=== PATIENT | female | born 1990 | race Caucasian/White ===

== ENCOUNTER 2018-03-10 06:30 | Outpatient (CLI) | payer BC ==
--- NOTE | 2018-03-10 08:24 | ULT ---
TRANSABDOMINAL PELVIC ULTRASOUND WITH DOPPLER: DATE: 03/10/2018. PROVIDED CLINICAL HISTORY: Irregular menses. FINDINGS: The uterus measures about 9.8 x 4.9 x 2.9 cm and demonstrates a normal transabdominal sonographic meir earance. The endometrial thickness is about 6 mm. The right ovary measures about 3.9 x 3.0 x 2.5 cm and appears sonographically unremarkable. The left ovary measures about 3.1 x 4.0 x 2.7 cm and appears sonographically unremarkable. Color Doppler and spectral analysis of the aberrant waveforms demonstrates flow bilaterally. There i s no evidence for free pelvic fluid. IMPRESSION: Unremarkable transabdominal pelvic ultrasound. POS: OFF
== END 2018-03-10 06:31 | disposition home or self-care (01) ==
LOC: BICULT 06:30
PROVIDERS: ATTEND Family Medicine
DX: N92.6 Irregular menstruation, unspecified (principal)
CPT/HCPCS: 76856; 93976

== ENCOUNTER 2019-08-28 00:18 | Inpatient (IN) | payer OTHER ==
[2019-08-28] MEDS ORDERED: hydrALAZINE 20 MG/ML VIAL SLOW IVP PRN ×2 (00:39→23:25)
[2019-08-28] MEDS ORDERED: Ibuprofen 800 MG TAB PO PRN (00:45)
[2019-08-28] MEDS ORDERED: Ondansetron PF 4 MG/2 ML Vial IVP PRN ×4 (00:45→23:25)
[2019-08-28] MEDS ORDERED: NS / Oxytocin 40 units/1000ml 1,000 ML IV PRN (00:45)
[2019-08-28] MEDS ORDERED: Butorphanol Tartrate 1 MG/ML VIAL SLOW IVP PRN (00:45)
[2019-08-28] MEDS ORDERED: Acetaminophen 500 MG TAB PO PRN (00:45)
[2019-08-28] MEDS ORDERED: Lidocaine 1% (PF) 30 ML VIAL SC PRN (00:45)
[2019-08-28] MEDS ORDERED: Promethazine HCl 25 MG/ML VIAL IM PRN ×3 (00:45→20:33)
[2019-08-28] MEDS ORDERED: NS w/ Oxytocin 10 units 500 ML IV SCH (00:45)
[2019-08-28] MEDS: Lactated Ringer's 1,000 ML IV SCH ×3 (00:55→08:26)
--- NOTE | 2019-08-28 00:58 | PDOC.FPROB ---
FMR OB H&P: HPI - History of Present Illness Chief Complaint: Leaking of fluid and contractions Indentification: 29 year old at 39.0 wks History of Present Illness: 29 year old at 39.0 wks by LMP/1T kenia presents with LoF since 23:00 with mildly painful contractions q4 min since that time. Patient endorses good movement. She denies vaginal bleeding. 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 She was scheduled for IOL on 09/03. Titers have been drawn monthly initially and then q2w in 3T. Titers have been 1:1 and 1:2, with most recent titer 08/07 1:1. Primary Care Physician: Dr. Hodge FMR OB H&P: Current - Care : 2 Para: 0010 Gestational age: 39.0 wks Due date: 09/04/2019 Dating Criteria: LMP/1T sono - OB Labs Blood type: O RH: positive Antibody Screen: positive HIV: negative RPR: negative HepBsAg: negative Rubella: immune Pap Smear: NILM 1 hour gtt: 91 FMR OB H&P: History - Past Medical History PMH: Denies - OB History OB History: Anti-M antibody w/ titers 1:1 and 1:2 during ; last titer 08/07 was 1:1 - PHARMACY TECHNOLOGIST History PHARMACY TECHNOLOGIST History: Denies any history of STD's or abnormal Pap - Surgical History Sx History: Denies - Social History Social History: Denies alcohol, tobacco, or drug use FMR OB H&P: Medications - Current Home Medications: Medication Instructions Recorded Confirmed Type Aspirin [Low Dose Aspirin EC] 81 mg PO DAILY 08/28/19 08/28/19 History Can759/Iron Fum/Folic/Docusate 1 tab PO DAILY 08/28/19 08/28/19 History [ 19] Allergies/Adverse Reactions: Allergies Allergy/AdvReac Type Severity Reaction Status Date / Time acetaminophen [From Tylenol] Allergy Emesis Verified 08/28/19 01:01 FMR OB H&P: ROS - Review of Systems General: denies: fever/chills, weight/appetite/sleep changes Eyes: denies: vision changes, double vision ENT: denies: nasal congestion, rhinorrhea, sore throat Cardiovascular: denies: chest pain, palpitation, edema Respiratory: denies: cough, congestion, shortness of breath Gastrointestinal: reports: abdominal pain. denies: nausea, vomiting, diarrhea Genitourinary (Female): reports: vaginal discharge (LOF), contractions. denies : dysuria, vaginal pain, vaginal bleeding Musculoskeletal: denies: pain, stiffness, tenderness Neurologic: denies: numbness, syncope, seizures Integumentary: denies: itching, rash, lesions Hematologic/Lymphatic: denies: prolonged or excessive bleeding Psychological: denies: depression, anxiety FMR OB H&P: Vital Signs - Maternal Vital signs: BP 128/63 Pulse 80 Afebrile - Heart Tones Baseline: 140 Variability: moderate Acceleration: present Deceleration: absent Category: category 1 [place] contractions every: q4 min FMR OB H&P: Physical Exam - Physical Exam General: NAD, awake, alert and oriented HEENT: EOMI, MMM, grossly normal vision, grossly normal hearing Heart: RRR, pulses present General: CTAB, no respiratory distress Abdomen: soft, gravid, non-tender Musculoskeletal: pulses present, FROM in all four extremities Neurological: no tremor, no focal deficit Skin: no rash, capillary refill <2 seconds Lymphatic: no unusual bruising or bleeding, no purpura Psychiatric: intact recent and remote memory, good judgement and insight, normal mood and affect FMR OB H&P: A/P - Problem List (1) SROM (spontaneous rupture of membranes) Current Visit: Yes Status: Acute Code(s): [id number] - (2) History of spontaneous Current Visit: Yes Status: Acute Code(s): Z87.59 - PERSONAL HISTORY OF COMP OF PREG, CHLDBRTH AND THE PUERP (3) Term Current Visit: Yes Status: Acute Code(s): Z34.90 - ENCNTR FOR SUPRVSN OF NORMAL , UNSP, UNSP TRIMESTER Disposition: 29 year old at 39 wks by LMP/1T sono Term IUP, SROM - Gross rupture on exam (time of rupture 23:00 on 08/26) - Cat I strip - GBS neg - Expectant management, pitocin for augmentation if necessary Anti-M antibody - Titers done qmonth and then q2w during 3T - Titers 1:1 and 1:2 on review of records; on 08/07 titer was 1:1 - Father with M antigen - Initially scheduled for IOL on 09/03 Hx SAB Dispo: Admit to L&D for expectant management. Pitocin as needed for augmentation. Discussion: Date/Time: 08/28/19 0050 This H&P was discussed with Dr. Hodge who agrees with the above documentation and plan. Signature: Nataliia Ann, PGY-3
[2019-08-28 01:03] VITALS: BMI 41.1
[2019-08-28 01:06] LABS: Hemoglobin 12.2 g/dL (12.0-16.0); Mean Corpuscular HGB CONC 32.6 g/dL (32.0-36.0); Mean Corpuscular Hemoglobin 28.9 pg (27.0-31.0); Mean Corpuscular Volume 88.7 fL (78.0-98.0); Mean Platelet Volume 9.3 fL (7.4-10.4); Platelet Count 234 thou/uL (130-400); RBC Distribution Width 12.7 % (11.5-14.5); Red Blood Cell (RBC) Count 4.22 mill/uL (4.20-5.40); White Blood Cell (WBC) Count 9.9 thou/uL (4.8-10.8)
[2019-08-28] MEDS ORDERED: Fentanyl 4 mcg/Bup 0.1% Cadd 100 ML ONE ×3 (01:36→16:59)
[2019-08-28 01:50] LABS: HBSAg Index 0.24 S/CO (0-0.99); Hep B Surf Ag Non-Reactive S/CO (NonReactive)
[2019-08-28] MEDS ORDERED: Fentanyl 100 MCG/2 ML VIAL ONE (01:52)
[2019-08-28] MEDS ORDERED: Lidocaine 1% PF 5 ML VIAL ONE (02:02)
[2019-08-28] MEDS ORDERED: Lactated Ringer's 500 ML IV PRN (02:26)
[2019-08-28] MEDS ORDERED: diphenhydrAMINE 50 MG/ML VIAL IVP PRN ×2 (02:26→20:33)
[2019-08-28] MEDS ORDERED: EPHEDRINE 25 MG/5 ML SYRINGE SLOW IVP PRN (02:26)
[2019-08-28] MEDS ORDERED: Naloxone HCl 0.4 mg/ml Vial IVP PRN ×4 (02:26→20:33)
[2019-08-28] MEDS ORDERED: Acetaminophen 325 MG TAB PO PRN (02:26)
[2019-08-28] MEDS ORDERED: Communication Order-Pharmacy FS SCH ×2 (02:30→20:45)
[2019-08-28 04:57] LABS: Syphilis Antibody Nonreactive (Nonreactive); Syphilis Antibody Index 0.12 S/CO (<1.00 Non-Reactive)
[2019-08-28] MEDS ORDERED: Bupivacaine/Epinephrine 0.25% 30 ML VIAL ONE (09:19)
[2019-08-28] MEDS: Fentanyl 4 mcg/Bupivacaine 0.1% Cassette 100 ML EPIDURAL SCH ×2 (09:32→17:04)
[2019-08-28] MEDS ORDERED: NS / Oxytocin 40 units/1000ml 1,000 ML ONE (17:31)
[2019-08-28] MEDS ORDERED: Lidocaine 1% (PF) 30 ML VIAL ONE (17:31)
[2019-08-28] MEDS ORDERED: Lidocaine 2% 10 ML INJ ONE (19:55)
[2019-08-28] MEDS ORDERED: Bupivacaine 0.5% 10 ML VIAL ONE (19:56)
[2019-08-28] MEDS ORDERED: Azithromycin 500 MG in Sodium Chloride 0.9% 250 ML 250 ML IVPB SCH (20:00)
[2019-08-28] MEDS ORDERED: Bicitra 30 ML UDCUP PO SCH (20:00)
[2019-08-28] MEDS ORDERED: CEFAZOLIN 2 GM in Premix Bag 1 BAG IVPB SCH (20:00)
--- NOTE | 2019-08-28 20:02 | PDOC.BPN ---
- Brief Progress Note Patient has been pushing for 2 hours with minimal descent. Fetus with persistent tachycardia, minimal variability, with occasional late decelerations. Patient counseled on recommendation to proceed with primary LTCS for FHRA and arrest of descent and agrees to proceed. Ancef, azithromycin ordered. Anesthesia notified.
[2019-08-28] MEDS ORDERED: Ondansetron PF 4 MG/2 ML Vial ONE (20:03)
[2019-08-28] MEDS ORDERED: Dexamethasone 4 mg/ml Vial ONE (20:03)
[2019-08-28] MEDS ORDERED: Oxytocin 10 UNITS/ML VIAL ONE (20:03)
[2019-08-28] MEDS ORDERED: MORPHINE 5 MG/10 ML PF VIAL ONE (20:03)
[2019-08-28] MEDS ORDERED: EPHEDRINE 25 MG/5 ML SYRINGE ONE (20:03)
[2019-08-28] MEDS ORDERED: Promethazine HCl 25 MG SUPP PR PRN (20:33)
[2019-08-28] MEDS ORDERED: Naloxone HCl 0.4 mg/ml Vial IV PRN (20:33)
[2019-08-28] MEDS ORDERED: Ketorolac Tromethamine 30 MG/ML VIAL IVP PRN (20:33)
[2019-08-28 20:42] LABS: Actual Bicarbonate (HCO3v) 20 mEq/L (22-28); Base Excess -4.2 mEq/L (-2.0 to +3.0); pH (Cord, venous) 7.37 (7.32-7.43)
[2019-08-28 20:46] LABS: Actual Bicarbonate (HCO3a) 24.5 mEq/L (22-28); Base Excess (BEa) -3.5 mEq/L (-2.0 to +3.0)
--- NOTE | 2019-08-28 21:10 | PDOC.OPDEL ---
OB Operative/Delivery Note Delivery Dr/Surgeon: David Assist: Adrien Ann Pre-Delivery Diagnosis: active labor, non-reassuring tracing Procedure/Post Delivery Dx: primary low transverse CS Weeks gestation: 39 Anesthesia: epidural - Findings A Sex: male ("Kumar") Weight: 8 lb 2 oz - 1 min: 8 - 5 min: 9 - Additional Findings/Plan Placenta delivered: spontaneous findings: low transverse hysterotomy without extension Estimated blood loss: 505ml Post delivery plan: routine recovery
[2019-08-28] MEDS ORDERED: Milk Of Magnesia 30 ML UDCUP PO PRN (23:25)
[2019-08-28] MEDS ORDERED: Lanolin Ointment 7 GM TUBE TOP PRN (23:25)
[2019-08-28] MEDS ORDERED: Docusate 100 MG CAP PO SCH (23:30)
--- NOTE | 2019-08-29 06:48 | PDOC.PP ---
Post Progress Note Post Day #: 1 Subjective: Doing well this morning, no complaints. Ate a regular diet last night without difficulty. PO intake tolerated: yes Flatus: no Ambulation: yes Vital Signs (12 hours) Temp Pulse Resp BP Pulse Ox 08/29/19 04:00 97.9 F 70 18 106/65 96 08/29/19 01:40 99.0 F 83 16 136/67 95 08/29/19 00:40 98.7 F 77 16 113/60 97 08/28/19 23:40 98.7 F 75 16 114/59 L Weight Weight 240 lb - Physical Examination General: NAD Respiratory: non-labored breathing Abdominal: lochia (normal), no distention, appropriately TTP Fundus firm & at: below umbilicus Skin: CS incision dry & intact (dressing), no rash Neurological: no gross focal deficits Psychiatric: A&Ox3, normal affect Result Diagrams: 08/28/19 00:58 Additional Labs: Post Labs Blood Type O POSITIVE 08/28/19 01:57 Hep Bs Antigen Non-Reactive S/CO (NonReactive) 08/28/19 00:58 (1) heart rate non-reassuring affecting management of mother Code(s): O36.8390 - MATERN CARE FOR ABNLT FETL HRT RATE OR RHYM, UNSP TRI, UNSP Status: Acute (2) Arrest of descent, delivered, current hospitalization Code(s): O62.1 - SECONDARY UTERINE INERTIA Status: Acute (3) delivery delivered Code(s): O82 - ENCOUNTER FOR DELIVERY WITHOUT INDICATION Status: Acute - Assessment/Plan Continue routine postop day 1 care. Encourage ambulation. Anticipate d/c tomorrow or Saturday.
[2019-08-29 06:59] LABS: Mean Corpuscular HGB CONC 32.1 g/dL (32.0-36.0); Mean Corpuscular Hemoglobin 28.8 pg (27.0-31.0); Mean Corpuscular Volume 89.9 fL (78.0-98.0); Mean Platelet Volume 9.3 fL (7.4-10.4); Platelet Count 232 thou/uL (130-400); RBC Distribution Width 12.6 % (11.5-14.5); Red Blood Cell (RBC) Count 4.18 mill/uL (4.20-5.40); White Blood Cell (WBC) Count 19.1 thou/uL (4.8-10.8)
[2019-08-29] MEDS: Prenatal Vitamin 1 TAB PO SCH (08:51)
[2019-08-29] MEDS: Docusate 100 MG CAP PO SCH ×2 (08:52→21:31)
[2019-08-29] MEDS: Polyethylene Glycol 3350 17 GM Packet PO SCH (08:52)
[2019-08-29] MEDS ORDERED: Adacel (T-DAP) 0.5 ML SYRINGE IM ONE (09:00)
[2019-08-29] MEDS ORDERED: Benzocaine-Menthol 82.5 ML CAN TOP PRN (16:30)
[2019-08-30] MEDS ORDERED: Ibuprofen 800 MG TAB PO SCH (06:00)
--- NOTE | 2019-08-30 06:43 | PDOC.PP ---
Post Progress Note Post Day #: 2 Subjective: Patient doing well. No significant overnight events. Lochia minimal. Tolerating PO. Ambulating without difficulty. PO intake tolerated: yes Flatus: yes Ambulation: yes Vital Signs (12 hours) Temp Pulse Resp BP Pulse Ox 08/30/19 05:32 98.3 F 75 18 120/67 98 08/29/19 23:56 98.5 F 86 18 104/59 L 97 08/29/19 20:20 98.6 F 73 18 114/74 96 Weight Weight 108.862 kg - Physical Examination General: NAD Cardiovascular: RRR Respiratory: clear to auscultation bilaterally, non-labored breathing Abdominal: + bowel sounds, lochia (minimal), no distention, appropriately TTP Fundus firm & at: at umbilicus Skin: CS incision dry & intact, no rash Neurological: no gross focal deficits Psychiatric: A&Ox3, normal affect Result Diagrams: 08/29/19 06:23 Additional Labs: Post Labs Blood Type O POSITIVE 08/28/19 01:57 Hep Bs Antigen Non-Reactive S/CO (NonReactive) 08/28/19 00:58 (1) SROM (spontaneous rupture of membranes) Code(s): [id number] - Status: Acute (2) History of spontaneous Code(s): Z87.59 - PERSONAL HISTORY OF COMP OF PREG, CHLDBRTH AND THE PUERP Status: Acute (3) Term Code(s): Z34.90 - ENCNTR FOR SUPRVSN OF NORMAL , UNSP, UNSP TRIMESTER Status: Acute - Assessment/Plan Routine PP care - PP day #2 - Meeting PP milestones - C/S incision clean, dry, intact - Ambulating without difficulty Dispo: Plan for d/c home today.
--- NOTE | 2019-08-30 07:30 | OP ---
DATE OF PROCEDURE: 08/28/2019 ATTENDING SURGEON: Fabiola Hernandez MD RESIDENT SURGEON: Nataliia Ann DO SUPPORT TECHNICIAN SURGEON: Lotus Jurado MD PROCEDURE PERFORMED: Primary low-transverse section. PREOPERATIVE DIAGNOSES: 1. Term intrauterine . 2. Arrest of descent. 3. Nonreassuring heart tones: Unexplained prolonged tachycardia. 4. Anti-M antibodies, titers 1:1. 5. History of spontaneous . POSTOPERATIVE DIAGNOSES: 1. Term intrauterine , delivered. 2. Primary low-transverse section. 3. Arrest of descent. 4. Nonreassuring heart tones: Unexplained prolonged tachycardia. 5. Anti-M antibodies, titers 1:1. 6. History of spontaneous . INDICATIONS FOR PROCEDURE: This is a 29-year-old, G2, P0-0-1-0 at 39.1 weeks by LMP and first trimester sono, who presented with rupture of membranes at 2300 hours on 08/26. The patient was admitted to Labor and Delivery for expectant management. Of note, the patient had arrest of descent along with unexplained prolonged tachycardia prompting decision for primary low-transverse due to concerns for status. The patient does have a history of anti-M antibody, and has M antigen. She had titers drawn throughout the , and the last titer on 08/07, was 1:1. The patient did have prolonged rupture of membranes at 21 hours. DESCRIPTION OF PROCEDURE: After risks, benefits, and alternatives were explained to the patient, she gave informed consent. The patient was taken back to the operating room. Her epidural was bolused, and she was placed in the supine position with left lateral tilt and prepped and draped in the usual sterile fashion. She was given cefazolin 2 g and azithromycin 500 mg. A Pfannenstiel incision was made and carried down to the level of the fascia, which was sharply nicked. The lateral edges of the cut fascia were extended bilaterally with Joseph scissors. The superior and inferior edges of the cut fascia were grasped with Karma clamps, and the underlying rectus muscles were dissected free utilizing curved Joseph scissors. Bleeders were cauterized in the process. The abdominal muscles were then entered bluntly in midline, and the peritoneum was entered bluntly and retracted manually. An Willian O was placed. A low-transverse score was then made in the lower uterine segment. Allis clamp was used for AROM, and clear fluid was noted. The infant was noted to be cephalic and deep within the pelvis. The infant was delivered with fundal pressure through the hysterotomy with ease. No nuchal. Cord was clamped and cut, and grossly normal male infant was handed to the waiting nurse. Cord gas was collected. Cord blood was then collected for blood type. Placenta was delivered spontaneously and noted to be intact with 3-vessel cord. The placenta was sent for pathology given the unexplained tachycardia. The endometrium was curetted with a dry lap. The hysterotomy was then closed using #[address] This was done in a running locking fashion. A vertical imbricating layer was then done for hemostasis and possible . After this, hemostasis was noted. The ovaries and tubes were evaluated and noted to be normal. The Willian O was removed, and the hysterotomy was again noted to be hemostatic. The peritoneum was closed using 2-0 Vicryl in a running nonlocking fashion. The abdominal muscles were examined, and bleeders were cauterized. The fascia was then closed using 0 PDS suture in a running nonlocking fashion. The subcutaneous tissue was irrigated, and bleeders were cauterized. The subcutaneous tissue was then brought together with a running nonlocking suture in the deep layer followed by several interrupted sutures for the more superficial layers using a 2-0 plain gut. The skin was approximated using 4-0 monofilament. Dermabond was placed. Pressure dressing was applied. All counts were correct. QBL: 505 mL. COMPLICATIONS: None. DRAINS: Paez to gravity draining clear urine. FINDINGS: Placenta noted to be intact with 3-vessel cord noted and sent for pathology. Cord gas sent for analysis. Cord blood sent for blood type. Male infant with Apgars of 8 and 9 at one and five minutes respectively. Weight of 3.684 kg. Delivery time 2020 hours. Job ID: [id number] MTDD
[2019-08-30] MEDS: Prenatal Vitamin 1 TAB PO SCH (08:21)
[2019-08-30] MEDS: Polyethylene Glycol 3350 17 GM Packet PO SCH (08:21)
[2019-08-30] MEDS: Docusate 100 MG CAP PO SCH (08:21)
[2019-08-30 09:44] VITALS: TEMP 98.5
[2019-08-30 12:44] VITALS: BP 111/76
== END 2019-08-30 14:34 | disposition home or self-care (01) | DRG 807 ==
LOC: L&D/OP 00:18 → L&D 00:45 → 3SW 08-29 01:28
PROVIDERS: ADMIT Student in an Organized Health Care Education/Training Program; ATTEND Student in an Organized Health Care Education/Training Program
PROC: 10E0XZZ Delivery of Products of Conception, External Approach (ICD-10-PCS; principal; 2019-08-29)
DX: O76 Abnormality in fetal heart rate and rhythm complicating labor and delivery (principal); Z37.0 Single live birth; O75.89 Other specified complications of labor and delivery; O32.4XX0 Maternal care for high head at term, not applicable or unspecified; Z3A.39 39 weeks gestation of pregnancy
CPT/HCPCS: 36415; 51702; 82805; 85027; 86780; 86850; 86900; 86901; 87340; 88307; 99285; J0456; J0690; J1100; J1200; J1885; J2001; J2274; J2405; J2590; J3010; J3490; J7050